=== PATIENT | female | born 1955 | race Two or more races ===

== ENCOUNTER 2021-02-26 07:09 | Day surgery (SDC) | payer OTHER ==
[2021-02-26] VITALS (8 sets, daily range): BP systolic 109–148; BP diastolic 69–81
[~2021-02-26] VITALS: Ht 154.9 cm; Wt 76.2 kg
[~2021-02-26 07:09] MED LIST: CHOL20007 PO; LOSA-69 PO; ROSU20TA14 PO
[2021-02-26] MEDS ORDERED: NITROGLYCERIN 5MG/ML 10ML VIAL IV ONE (08:27)
[2021-02-26] MEDS ORDERED: HEPARIN SODIUM (PORCINE) 5000 UNITS/ML 1ML VIAL ONE (10:11)
[2021-02-26] MEDS ORDERED: ANGIOMAX 250 MG VIAL IV ONE (10:11)
[2021-02-26] MEDS ORDERED: VERAPAMIL 2.5MG/ML INJ 2ML VIAL IV ONE (10:12)
[2021-02-26] MEDS ORDERED: MIDAZOLAM HCL 2MG/2ML 2ml VIAL (1mg/ml) ONE (10:12)
[2021-02-26] MEDS ORDERED: SODIUM CHL 0.9% 0 ML ONE (10:12)
[2021-02-26] MEDS ORDERED: fentaNYL CITRATE 100 MCG/2 ML VL ONE (10:12)
[2021-02-26] MEDS ORDERED: LIDOCAINE 2%HCL (LOCAL ANESTH.) INJ 20ML MDV ONE (10:24)
[2021-02-26] MEDS ORDERED: ONDANSETRON HCL 4 MG/2 ML VIAL ONE (10:40)
[2021-02-26] MEDS ORDERED: ACETAMINOPHEN 500 MG TAB PO ONE (13:07)
== END 2021-02-26 13:40 | disposition home or self-care (01) ==
LOC: CATH 07:09
PROVIDERS: ATTEND Internal Medicine
DX: R94.39 Abnormal result of other cardiovascular function study (principal); I10 Essential (primary) hypertension; I20.8 Other forms of angina pectoris; E11.9 Type 2 diabetes mellitus without complications; E78.5 Hyperlipidemia, unspecified; Z82.49 Family history of ischemic heart disease and other diseases of the circulatory system; Z20.822 Contact with and (suspected) exposure to COVID-19
CPT/HCPCS: 93458; C1887; C1894; J1644; J2250; J2405; J3010; J7040; U0003; 99152; J3490